=== PATIENT | female | born 2000 | race Caucasian/White ===

== ENCOUNTER → 2020-06-10 14:06 | Outpatient (BNVA) | payer OTHER, SELFPAY | PROVIDERS: Family Provider Family Medicine; PCP Family Medicine; Referring Provider Dermatology; Visit Provider Dermatology | DX: L70.8 Other acne (principal); L21.9 Seborrheic dermatitis, unspecified | CPT/HCPCS: 99203 ==

== ENCOUNTER → 2020-11-09 15:35 | Outpatient (BNVA) | payer OTHER, SELFPAY | PROVIDERS: Family Provider Family Medicine; PCP Family Medicine; Visit Provider Nurse Practitioner | DX: R39.9 Unspecified symptoms and signs involving the genitourinary system (principal); N39.0 Urinary tract infection, site not specified | CPT/HCPCS: 81000 ==

== ENCOUNTER → 2021-05-14 13:55 | Outpatient (BNVA) | payer OTHER, SELFPAY | PROVIDERS: PCP Family Medicine; Visit Provider Nurse Practitioner Family | DX: E66.9 Obesity, unspecified (principal); R53.83 Other fatigue; E03.9 Hypothyroidism, unspecified | CPT/HCPCS: 80053; 82607; 83036; 83550; 84443; 84702 ==

== ENCOUNTER → 2021-12-23 14:25 | Outpatient (BNVA) | payer OTHER, SELFPAY | PROVIDERS: PCP Family Medicine; Referring Provider Nurse Practitioner Family; Visit Provider Podiatrist Foot & Ankle Surgery | DX: M79.671 Pain in right foot (principal); M79.672 Pain in left foot | CPT/HCPCS: 73630 ==

== ENCOUNTER → 2022-02-17 14:00 | Outpatient (BNVA) | payer OTHER, SELFPAY | PROVIDERS: PCP Family Medicine; Visit Provider Nurse Practitioner Family | DX: E03.9 Hypothyroidism, unspecified (principal); E66.9 Obesity, unspecified; N92.6 Irregular menstruation, unspecified | CPT/HCPCS: 84443 ==

== ENCOUNTER 2022-04-01 05:42 | Outpatient (CLI) | payer OTHER, SELFPAY ==
--- NOTE | 2022-04-01 06:15 | US_ITS ---
WS: [id number] TRANSVAGINAL PELVIC ULTRASOUND HISTORY: Irregular cycles. COMPARISON: None available. Uterus: 7.6 cm x 5.1 cm x 3.3 cm. Low normal size uterus with the fundus directed posterior. Position makes the uterus difficult to visualize but no fibroid or mass identified. Endometrium: 1.1 cm. No abnormality. Right ovary: 2.5 cm x 3.4 cm x 1.9 cm. Normal size and vascularity, no cystic or solid masses. Left ovary: Not visualized. Large amount of shadowing from the LEFT adnexa. No free fluid. US/US transvaginal [id number] IMPRESSION: 1. Normal endometrium. 2. Normal uterus. 3. LEFT ovary not visualized.
== END 2022-04-01 05:43 | disposition home or self-care (01) ==
LOC: RAD 05:45
PROVIDERS: PCP Family Medicine; Visit Provider Nurse Practitioner Family
DX: N92.6 Irregular menstruation, unspecified (principal); E66.9 Obesity, unspecified; E03.9 Hypothyroidism, unspecified
CPT/HCPCS: 76830

== ENCOUNTER 2022-08-03 17:19 | Outpatient (CLI) | payer OTHER, SELFPAY | END 2022-08-03 17:20 | disposition home or self-care (01) | LOC: LAB 17:24 | PROVIDERS: Visit Provider Nurse Practitioner Women's Health | DX: N92.6 Irregular menstruation, unspecified (principal) | CPT/HCPCS: 84702 ==

== ENCOUNTER 2022-08-05 14:35 | Outpatient (CLI) | payer OTHER, SELFPAY | END 2022-08-05 14:36 | disposition home or self-care (01) | LOC: LAB 14:39 | PROVIDERS: Visit Provider Nurse Practitioner Women's Health | DX: N92.6 Irregular menstruation, unspecified (principal) | CPT/HCPCS: 36415; 84702 ==

== ENCOUNTER → 2022-08-26 12:10 | Outpatient (BNVA) | payer OTHER, SELFPAY | PROVIDERS: Visit Provider Nurse Practitioner Women's Health | DX: Z36.87 Encounter for antenatal screening for uncertain dates (principal) | CPT/HCPCS: 76817 ==

== ENCOUNTER → 2022-09-13 12:47 | Outpatient (BNVA) | payer OTHER, SELFPAY | PROVIDERS: PCP Family Medicine; Visit Provider Family Medicine | DX: E03.9 Hypothyroidism, unspecified; Z34.00 Encounter for supervision of normal first pregnancy, unspecified trimester; R03.0 Elevated blood-pressure reading, without diagnosis of hypertension | CPT/HCPCS: 80307; 81000; 81025; 82570; 84156; 84439; 84443; 84481; 85025; 86592; 86762; 86803; 86850; 86900; 87086; 87340; 87491; 87591; 87624; 87806 ==

== ENCOUNTER 2022-09-21 17:40 | Outpatient (CLI) | payer OTHER, SELFPAY ==
[2022-09-21 18:24] LABS: Basophils % 0.4 %; Eosinophils # 0.1 10^3/uL (0.0-0.8); Eosinophils % 1.2 %; Hematocrit 37.6 % (37.0-47.0); Hemoglobin 12.7 g/dL (11.5-15.3); Lymphocytes # 2.5 10^3/uL (0.8-4.8); Lymphocytes % 23.7 %; Mean Corpuscular HGB Conc 33.8 g/dL (30.0-36.0); Mean Corpuscular Hemoglobin 29.3 pg (28.0-34.0); Mean Corpuscular Volume 86.6 fl (81-99); Mean Platelet Volume 11.5 fL (7.4-10.4); Monocytes # 0.6 10^3/uL (0.2-0.9); Monocytes % 5.4 %; Neutrophils % 68.9 %; Nucleated Red Blood Cells % 0 %; Platelet Count 281 10^3/cmm (130-400); Red Blood Count 4.34 10^6/uL (4.1-5.3); Red Cell Distribution Width 13.2 % (12.1-15.1); White Blood Count 10.7 10^3/uL (4.0-10.0)
[2022-09-21 21:15] LABS: HIV 1 & 2 Antibody Non-Reactive (Non-Reactiv); HIV 1 & 2 Antigen Non-Reactive (Non-Reactiv)
[2022-09-21 22:02] LABS: Hepatitis B Surface Antigen Non-Reactive (Nonreactive); Hepatitis C Virus Antibody Non-Reactive (Nonreactive)
[2022-09-21 22:04] LABS: Free T4 Free Thyroxine 1.13 ng/dL (0.82-1.77); Rubella IgG 100.6 IU/mL (0.0-10.0); T3 Free 2.9 PG/ML (2.0-4.4); Thyroid Stimulating Hormone 2.18 uIU/mL (0.27-4.20)
[2022-09-21 22:07] LABS: Rapid Plasma Reagin Syphilis Nonreactive (Nonreactive)
== END 2022-09-21 17:41 | disposition home or self-care (01) ==
LOC: LAB 17:43
PROVIDERS: PCP Family Medicine; Visit Provider Family Medicine
DX: Z36.9 Encounter for antenatal screening, unspecified (principal)
CPT/HCPCS: 36415; 84439; 84443; 84481; 85025; 86592; 86762; 86803; 86850; 86900; 87340; 87806

== ENCOUNTER 2022-10-19 16:50 | Outpatient (CLI) | payer OTHER, SELFPAY ==
[2022-10-19 22:50] LABS: Free T4 Free Thyroxine 0.99 ng/dL (0.82-1.77); Thyroid Stimulating Hormone 1.89 uIU/mL (0.27-4.20)
[2022-10-22 16:45] LABS: Alpha-fetoprotein MoM 1.01; Calculated Gestional Age 15.6 weeks; Cigarette Smoker NO; Donor Age Egg Retrival NOT GIVEN; Estriol Free 0.63 ng/mL; Inhibin A Dimeric 229 pg/mL; Insulin Depend Dibetic NOT GIVEN; Maternal Serum HCG 55.17 IU/mL; Maternal Serum HCG MoM 1.74; Maternal Weight 208 lbs; Mothers Ethnic Orgin CAUCASIAN; Number of Fetuses 1; Pregnancy Result of IVF NO; Previous Pregnancy Down Synd. NOT GIVEN; Quad Risk for ONTD <1 IN 5000
== END 2022-10-19 16:51 | disposition home or self-care (01) ==
PROVIDERS: PCP Family Medicine; Visit Provider Family Medicine
DX: Z00.00 Encounter for general adult medical examination without abnormal findings (principal); E03.9 Hypothyroidism, unspecified
CPT/HCPCS: 81511; 84439; 84443

== ENCOUNTER 2022-11-24 15:10 | Outpatient (CLI) | payer OTHER, SELFPAY ==
--- NOTE | 2022-11-24 15:15 | US_ITS ---
WS: [id number] OBSTETRICAL ULTRASOUND COMPLETE HISTORY: Anatomy US COMPARISON: 08/26/2022 Single intrauterine gestation in Cephalic presentation. Cervix is Closed and normal length. Cervical length is 4.3 cm. Normal amount of amniotic fluid surrounds the fetus. Placenta: Anterior, no previa or abruption. Placenta grade 0 Heart: 147 BPM. Very limited visualization of the heart and outflow tracts due to body habitus. Anatomy: Intracranial structures and spine are normal. kidneys, stomach and urinary bladd er are unremarkable. Abdominal wall, three-vessel cord and cord insertion site are normal. 4 extremities are present. profile: Very limited. Gender: Female. measurements: BPD = 4.8 cm = 20w4d; HC = 18.2 cm = 20w4d; AC = 16.1 cm = 21w1d; FL = 3.4 cm = 20w5d; EFW: 385 g. Not available. Biometry is internally concordant. AGA by ultrasound: 20w6d ANANT by ultrasound: 04/07/2023 US/US OB >= 14 weeks fetus [id number] IMPRESSION: 1. Single intrauterine gestation of 20w6d with an ANANT of 04/07/2023. 2. Screening survey is limited overall due to maternal body habitus. No abnorm alities are identified. In particular evaluation of the heart and outflow tract s is suboptimal. Suboptimal profile.
== END 2022-11-24 15:11 | disposition home or self-care (01) ==
LOC: RAD 15:11
PROVIDERS: PCP Family Medicine; Visit Provider Family Medicine
DX: Z36.89 Encounter for other specified antenatal screening (principal); Z3A.20 20 weeks gestation of pregnancy
CPT/HCPCS: 76805

== ENCOUNTER → 2022-11-29 15:43 | Outpatient (BNVA) | payer OTHER, SELFPAY | PROVIDERS: PCP Family Medicine; Visit Provider Family Medicine | DX: E03.9 Hypothyroidism, unspecified (principal) | CPT/HCPCS: 84439; 84443 ==

== ENCOUNTER 2022-12-24 14:52 | Outpatient (CLI) | payer OTHER, SELFPAY ==
--- NOTE | 2022-12-24 15:15 | US_ITS ---
WS: [id number] ULTRASOUND OB LIMITED TECHNIQUE: Limited ultrasound examination of the fetus. CLINICAL INFORMATION: Follow up US in 3-4 weeks COMPARISON: November 24, 2022 FINDINGS: Cervix is long and closed measuring 4.8 cm. Single interuterine gestation. presentation is vertex Placental location is anterior. Placenta grade: 0. heart rate 150 BPM. Anatomy: Ultrasound examination of the outflow tracts and profile today. Four-chamber heart vie w and outflow tracts normal in appearance. Normal profile. US/US OB limited [id number] IMPRESSION: 1. Cervix is long and closed measuring 4.8 cm. 2. Outflow tracts and profile appear normal today. 3. Vertex presentation with anterior placenta.
== END 2022-12-24 14:53 | disposition home or self-care (01) ==
LOC: RAD 14:54
PROVIDERS: PCP Family Medicine; Visit Provider Family Medicine
DX: Z34.00 Encounter for supervision of normal first pregnancy, unspecified trimester (principal)
CPT/HCPCS: 76815

== ENCOUNTER → 2022-12-28 16:08 | Outpatient (BNVA) | payer OTHER, SELFPAY | PROVIDERS: PCP Family Medicine; Visit Provider Family Medicine | DX: Z34.00 Encounter for supervision of normal first pregnancy, unspecified trimester (principal) | CPT/HCPCS: 82950 ==

== ENCOUNTER → 2023-01-25 15:55 | Outpatient (BNVA) | payer OTHER, SELFPAY | PROVIDERS: PCP Family Medicine; Visit Provider Family Medicine | DX: R03.0 Elevated blood-pressure reading, without diagnosis of hypertension (principal); Z34.00 Encounter for supervision of normal first pregnancy, unspecified trimester; E03.9 Hypothyroidism, unspecified | CPT/HCPCS: 84439; 84443; 84481; 85025 ==

== ENCOUNTER → 2023-02-03 10:45 | Outpatient (BNVA) | payer OTHER, SELFPAY | PROVIDERS: PCP Family Medicine; Visit Provider Family Medicine | DX: R03.0 Elevated blood-pressure reading, without diagnosis of hypertension (principal); Z34.00 Encounter for supervision of normal first pregnancy, unspecified trimester; Z51.81 Encounter for therapeutic drug level monitoring; E03.9 Hypothyroidism, unspecified | CPT/HCPCS: 80053; 82570; 84156; 84550; 85025 ==

== ENCOUNTER → 2023-02-22 16:49 | Outpatient (BNVA) | payer OTHER, SELFPAY | PROVIDERS: PCP Family Medicine; Visit Provider Family Medicine | DX: R03.0 Elevated blood-pressure reading, without diagnosis of hypertension (principal); Z34.00 Encounter for supervision of normal first pregnancy, unspecified trimester | CPT/HCPCS: 82570; 84156 ==

== ENCOUNTER 2023-02-27 10:03 | Outpatient (CLI) | payer OTHER, SELFPAY ==
[2023-02-27] VITALS (9 sets, daily range): BP systolic 130–145; BP diastolic 62–97; PULSE 88–123; RESP 16; TEMP 35.8; BMI 43.0
[2023-02-27] MEDS: lactated ringers 1,000 ML 999 ML IV (11:04)
[2023-02-27] MEDS: ondansetron 2 mg/ML SDV 2 mL 4 MG IVP (11:05)
== END 2023-02-27 12:25 | disposition home or self-care (01) ==
LOC: OPOB 10:10 → OBGYN 10:11
PROVIDERS: PCP Family Medicine; Visit Provider Family Medicine
DX: O26.899 Other specified pregnancy related conditions, unspecified trimester (principal); R11.2 Nausea with vomiting, unspecified; Z3A.00 Weeks of gestation of pregnancy not specified; R19.7 Diarrhea, unspecified
CPT/HCPCS: 36415; 59025; 96374; 99211; J2405; J7120

== ENCOUNTER 2023-03-17 14:44 | Outpatient (CLI) | payer OTHER, SELFPAY ==
[2023-03-17] VITALS (7 sets, daily range): BP systolic 131–142; BP diastolic 81–94; PULSE 104–113; RESP 15
--- NOTE | 2023-03-17 14:54 | US_ITS ---
WS: [id number] ULTRASOUND OB LIMITED TECHNIQUE: Limited ultrasound examination of the fetus. CLINICAL INFORMATION: [facility] COMPARISON: December 24, 2022 FINDINGS: Cervix is long and closed measuring 4.3 cm Single interuterine gestation. Placental location is anterior. Placenta grade: 2 heart rate 133 BPM. Normal CHARLES 11.0 cm Largest single vertical pocket measures 4.5 cm Biophysical profile 8 out of 8. breathin movement: 2 tone: 2 Amniotic fluid: 2 US/US OB BPP wo NST [id number] IMPRESSION: Normal biophysical profile 8 out of 8
[2023-03-17 15:46] LABS: Basophils % 0.2 %; Eosinophils # 0.1 10^3/uL (0.0-0.8); Eosinophils % 0.4 %; Hemoglobin 12.5 g/dL (11.5-15.3); Lymphocytes # 1.8 10^3/uL (0.8-4.8); Lymphocytes % 14.5 %; Mean Corpuscular HGB Conc 32.9 g/dL (30.0-36.0); Mean Corpuscular Hemoglobin 29.3 pg (28.0-34.0); Mean Corpuscular Volume 89.2 fl (81-99); Mean Platelet Volume 12.5 fL (7.4-10.4); Monocytes # 0.5 10^3/uL (0.2-0.9); Monocytes % 3.9 %; Neutrophils % 80.3 %; Nucleated Red Blood Cells % 0 %; Platelet Count 204 10^3/cmm (130-400); Red Blood Count 4.26 10^6/uL (4.1-5.3); Red Cell Distribution Width 14.6 % (12.1-15.1); White Blood Count 12.6 10^3/uL (4.0-10.0)
[2023-03-17 15:59] LABS: Add Urine Microscopic? YES; Bilirubin Urine Neg (Negative); Blood Urine Neg (Negative); Glucose Urine UA Norm (Normal); Ketones Urine 1+ (Negative); Leukocyte Esterase Urine Negative (Negative); Nitrate Urine Negative (Negative); Protein Urine Neg (Negative); Specific Gravity, Urine 1.025 (1.005-1.030); Urine Appearance SL Hazy (CLEAR); Urine Color Yellow (Yellow); Urobilinogen Urine Norm (Negative); pH Urine 6 (5-7)
[2023-03-17 16:02] LABS: Urine Creatinine 110 mg/dL (28-217); Urine Protein Random 15 mg/dL
[2023-03-17 16:10] LABS: UPRO/UCREAT Ratio 0.14 mg/mg CR
[2023-03-17 16:13] LABS: Alanine Aminotransferase 10 U/L (0-33); Albumin Level 3.5 g/dL (3.5-5.2); Alkaline Phosphatase 388 U/L (35-105); Anion Gap 17.7 (5-19); Aspartate Amino Transferase 12 U/L (0-32); Blood Urea Nitrogen 4 mg/dL (6-20); Calcium 9.9 mg/dL (8.5-10.5); Carbon Dioxide 20 mmol/L (22-29); Chloride 101 mmol/L (98-107); Free T4 Free Thyroxine 0.89 ng/dL (0.82-1.77); Globulin 3.6 g/dL (1.3-4.6); Glomerular Filtration Rate 152.9 mL/min (90-130); Glucose 87 mg/dL (65-115); Osmolality Calculated 276 mOsm/kg (285-295); Potassium 3.7 mmol/L (3.5-5.1); Sodium 135 mmol/L (136-145); Thyroid Stimulating Hormone 1.82 uIU/mL (0.27-4.20); Total Bilirubin 0.3 mg/dL (0.15-1.2); Total Protein 7.1 g/dL (6.6-8.7); Uric Acid 5.7 mg/dL (2.4-5.7)
[2023-03-17 16:20] LABS: Bacteria Urine 1+ /hpf; Mucus Urine 2+ /hpf; RBC Urine 0-4 /hpf (0-2); Squamous Epithelial Cell Urine 0-4 /hpf (0-5)
[2023-03-17 16:21] LABS: Add Urine Culture? No
== END 2023-03-17 16:51 | disposition home or self-care (01) ==
LOC: OPOB 14:54 → OBGYN 14:55
PROVIDERS: PCP Family Medicine; Visit Provider Family Medicine
DX: Z36.9 Encounter for antenatal screening, unspecified (principal)
CPT/HCPCS: 36415; 59025; 76819; 80053; 81001; 82570; 84156; 84439; 84443; 84550; 85025; 87081; 99211

== ENCOUNTER 2023-03-18 15:32 | Outpatient (CLI) | payer OTHER, SELFPAY ==
[2023-03-18 17:13] LABS: Total Volume, Urine 2400 mL
[2023-03-20 11:26] LABS: Urine Total Protein 5.5 mg/dL (0-150)
== END 2023-03-18 15:33 | disposition home or self-care (01) ==
LOC: LAB 15:36
PROVIDERS: PCP Family Medicine; Visit Provider Family Medicine
DX: O13.9 Gestational [pregnancy-induced] hypertension without significant proteinuria, unspecified trimester (principal); Z3A.00 Weeks of gestation of pregnancy not specified
CPT/HCPCS: 84156

== ENCOUNTER 2023-03-21 07:06 | Outpatient (CLI) | payer OTHER, SELFPAY ==
[2023-03-21 07:10] VITALS: BMI 44.0
[2023-03-21 07:16] VITALS: BP 140/91; PULSE 78; TEMP 35.6
[2023-03-21 07:26] VITALS: RESP 17
[2023-03-21 07:36] VITALS: BP 134/89; PULSE 77
[2023-03-21 07:56] VITALS: BP 128/83; PULSE 84
[2023-03-21 08:08] VITALS: BP 128/83; PULSE 84
== END 2023-03-21 08:08 | disposition home or self-care (01) ==
LOC: OPOB 07:12 → OBGYN 07:13
PROVIDERS: PCP Family Medicine; Visit Provider Family Medicine
DX: O16.9 Unspecified maternal hypertension, unspecified trimester (principal); Z3A.00 Weeks of gestation of pregnancy not specified
CPT/HCPCS: 59025; 99211

== ENCOUNTER 2023-03-23 06:01 | Outpatient (CLI) | payer OTHER, SELFPAY ==
[2023-03-23] VITALS (18 sets, daily range): BP systolic 123–165; BP diastolic 77–101; PULSE 81–96; RESP 16; BMI 43.7
--- NOTE | 2023-03-23 06:33 | US_ITS ---
WS: [id number] BIOPHYSICAL PROFILE AMNIOTIC FLUID HISTORY: decreased movement COMPARISON: 03/17/2023, 12/24/2022 position: Vertex. Cardiac activity: 144 bpm. Cervix: Obscured by the head and late gestational age. Placenta: Anterior, no previa or abruption. Placenta grade: 2 Parameters are as follows: Breathin Movement: 2 Tone: 2 Fluid volume: 2 Amniotic Fluid Index: 7.7 cm UMBILICAL ARTERY DOPPLER Waveform analysis: Normal systolic and diastolic velocities. Diastolic velocity remains above the bas shane. Normal upstroke of waveform. SD ratios: SD ratios range from 1.8-2.4 Resistivity indices: 0.5 US/US OB lm w fetalBPP woNST &umb IMPRESSION: 1. Biophysical profile score: 8/8. 2. Grade 2 placenta. 3. Normal amniotic fluid. 4. Umbilical artery Doppler ranges between the 10th and 50th percentile. Doppl er in the mid umbilical artery just above the 25th percentile.
[2023-03-23] MEDS: labetalol 200 mg Tablet 50 MG PO (08:41)
[2023-03-23 08:49] LABS: Basophils % 0.2 %; Eosinophils # 0.1 10^3/uL (0.0-0.8); Eosinophils % 0.8 %; Hematocrit 37.4 % (37.0-47.0); Hemoglobin 12.2 g/dL (11.5-15.3); Lymphocytes # 1.6 10^3/uL (0.8-4.8); Lymphocytes % 16.4 %; Mean Corpuscular HGB Conc 32.6 g/dL (30.0-36.0); Mean Corpuscular Hemoglobin 28.9 pg (28.0-34.0); Mean Corpuscular Volume 88.6 fl (81-99); Mean Platelet Volume 12.3 fL (7.4-10.4); Monocytes # 0.5 10^3/uL (0.2-0.9); Monocytes % 5.1 %; Neutrophils # 7.52 10^3/uL (1.8-7.7); Neutrophils % 76.9 %; Nucleated Red Blood Cells % 0 %; Platelet Count 183 10^3/cmm (130-400); Red Blood Count 4.22 10^6/uL (4.1-5.3); Red Cell Distribution Width 14.6 % (12.1-15.1); White Blood Count 9.8 10^3/uL (4.0-10.0)
[2023-03-23 09:06] LABS: Alanine Aminotransferase 10 U/L (0-33); Albumin Level 3.2 g/dL (3.5-5.2); Alkaline Phosphatase 376 U/L (35-105); Anion Gap 17.5 (5-19); Aspartate Amino Transferase 11 U/L (0-32); Blood Urea Nitrogen 2 mg/dL (6-20); Calcium 9.2 mg/dL (8.5-10.5); Carbon Dioxide 19 mmol/L (22-29); Chloride 103 mmol/L (98-107); Globulin 3.1 g/dL (1.3-4.6); Glomerular Filtration Rate 197.8 mL/min (90-130); Glucose 78 mg/dL (65-115); Osmolality Calculated 277 mOsm/kg (285-295); Potassium 3.5 mmol/L (3.5-5.1); Sodium 136 mmol/L (136-145); Total Bilirubin 0.2 mg/dL (0.15-1.2); Total Protein 6.3 g/dL (6.6-8.7); Uric Acid 6.6 mg/dL (2.4-5.7)
[2023-03-23 09:17] LABS: Urine Creatinine 30 mg/dL (28-217); Urine Protein Random 4 mg/dL
[2023-03-23 09:29] LABS: UPRO/UCREAT Ratio 0.13 mg/mg CR
== END 2023-03-23 10:00 | disposition home or self-care (01) ==
LOC: OPOB 06:02 → OBGYN 06:04
PROVIDERS: PCP Family Medicine; Visit Provider Family Medicine
DX: O16.9 Unspecified maternal hypertension, unspecified trimester (principal); O36.8190 Decreased fetal movements, unspecified trimester, not applicable or unspecified; Z3A.00 Weeks of gestation of pregnancy not specified
CPT/HCPCS: 36415; 59025; 76815; 76819; 76820; 80053; 82570; 84156; 84550; 85025; 99211

== ENCOUNTER 2023-03-24 03:53 | Inpatient (IN) | payer OTHER, SELFPAY ==
[2023-03-24] VITALS (53 sets, daily range): BP systolic 119–174; BP diastolic 66–105; PULSE 53–106; RESP 16; BMI 43.7
[2023-03-24] MEDS: acetaminophen 325 mg Tablet 650 MG PO (03:25)
[2023-03-24 04:34] LABS: Basophils % 0.3 %; Eosinophils # 0.1 10^3/uL (0.0-0.8); Eosinophils % 0.9 %; Hematocrit 39.1 % (37.0-47.0); Hemoglobin 12.7 g/dL (11.5-15.3); Lymphocytes # 2.3 10^3/uL (0.8-4.8); Lymphocytes % 18.7 %; Mean Corpuscular HGB Conc 32.5 g/dL (30.0-36.0); Mean Corpuscular Hemoglobin 28.5 pg (28.0-34.0); Mean Corpuscular Volume 87.9 fl (81-99); Mean Platelet Volume 12.5 fL (7.4-10.4); Monocytes # 0.7 10^3/uL (0.2-0.9); Monocytes % 5.6 %; Nucleated Red Blood Cells % 0 %; Platelet Count 201 10^3/cmm (130-400); Red Blood Count 4.45 10^6/uL (4.1-5.3); Red Cell Distribution Width 14.6 % (12.1-15.1); White Blood Count 12.2 10^3/uL (4.0-10.0)
[2023-03-24] MEDS: dextrose 5%-lactated ringers 1,000 ML 125 ML IV (05:08)
[2023-03-24] MEDS: ampicillin 2,000 MG in sodium chloride 0.9% (plus) 50 ML 100 MG IV (05:09)
[2023-03-24] MEDS: miSOPROStol 100 mcg tablet 25 MCG VAGINAL ×3 (05:09→15:42)
--- NOTE | 2023-03-24 07:04 | P.HP_ITS ---
Providers/Chief Complaint Admitting Physician: Obinna Tracy MD Primary Care Provider: Obinna Tracy MD Chief Complaint: high bp History of Present Illness Sara Peña is a 22 year old @ 37.6 weeks by LMP c/w 7 wk US. Preg c/b gHTN, hypothyroidism, obesity, GBS positive. The patient presented to labor and delivery triage on the morning of 03/24/2023 secondary to elevated blood pressure. Around 2:00 in the morning she woke up with a headache and nausea and her blood pressure was 166/125. She took labetalol 50 mg but presented to labor delivery triage for further evaluation. The patient's blood pressure continued to be elevated in triage and because of this it was felt best to keep her for induction of labor. The patient's headache has improved with Tylenol. Her nausea is improved as her blood pressure has decreased. She currently denies seeing spots, chest pains and shortness of breath. She denies any vaginal bleeding, leakage of fluid, dy suria, nausea, vomiting, diarrhea constipation at this time. Medications/Allergies Home Medications Medication Instructions Recorded Confirmed Last Taken Type levothyroxine 50 mcg tablet 50 mcg PO DAILY #30 tabs 05/15/21 03/23/23 02/27/23 Rx prenat.vits,fredy,fpp-obmp-[id number] 1 tab PO DAILY 08/26/22 03/23/23 03/22/23 History labetalol 100 mg tablet 50 mg PO BID #30 tabs 03/23/23 Unknown Rx Allergies Allergy/AdvReac Type Severity Reaction Status Date / Time No Known Allergies Allergy Verified 02/27/23 10:49 PFSH Acute PFSH: Medical History Hypothyroid No pertinent past medical history neghx: htn,dm,dvt/pe PCP: Nisha Ravi Surgical History No history of previous surgery Family History Father Hypertension Grandmother Breast cancer Maternal--dx age unknown Mother Colon cancer dx age 42 Thyroid disease Denies family history of Ovarian cancer Diabetes Heart disease Hypercholesteremia Uterine cancer Stroke Social History Smoking and tobacco status: never smoked Alcohol intake: never Substance/Drug Use: never Current occupation: Works at [employer] Female Reproductive History: : 1 Vitals/I&O/Wt Last Vital Signs Pulse 86 03/24/23 06:11 Resp 16 03/24/23 04:28 BP 134/91 03/24/23 06:11 O2 Del Method Room Air 03/24/23 04:30 Weight last 48 hrs Weight 239 lb Physical Exam Narrative: General: Alert and oriented x3 Eyes: Pupils equal round and reactive to light and accommodation Mouth: Mucous membranes moist, pharynx non-erythematous Cardiac: Regular rate and rhythm without murmurs Lungs: Clear to auscultation bilaterally without wheezes, crackles or rhonchi Abdomen: Soft, non-tender, fundus consistent with gestational age Extremities: Trace edema in the bilateral lower extremities, normal deep tendon reflexes in the bilateral lower extremities. Data 03/24/23 04:19 A&P Assessment and plan (1) Supervision of high risk , unspecified, third trimester: Due to the patient's blood pressures being severely elevated, she has been admitted for induction of labor. She received 1 dose of Cytotec. We will plan to continue with Cytotec and transition to Pitocin when able. The patient is unsure of an epidural at this time. We will start GBS prophylaxis when she is starting to make change. The antihypertensive protocol has been started. So far she has not needed IV medications. All questions were answered. We will proceed with induction. (2) Gestational HTN: Attestations Medical Necessity Statement*: The patient will be here for greater than 2 midnights due to routine intrapartum and management of labor and delivery. Coding Level of Care Code Acute Code for Chg Fwd Diagnoses Supervision of high risk , unspecified, third trimester O09.93 Gestational HTN O13.9
[2023-03-24] MEDS: ampicillin 1,000 MG in sodium chloride 0.9% (plus) 50 ML 100 MG IV ×4 (09:32→22:27)
[2023-03-25] VITALS (72 sets, daily range): BP systolic 106–173; BP diastolic 61–105; PULSE 68–108; RESP 16; TEMP 36–36.9
[2023-03-25] MEDS: ampicillin 1,000 MG in sodium chloride 0.9% (plus) 50 ML 100 MG IV ×6 (02:28→22:52)
[2023-03-25] MEDS: butorphanol 2 mg/mL SDV 1 mL 1 MG IVP ×3 (03:56→21:25)
[2023-03-25] MEDS: dextrose 5%-lactated ringers 1,000 ML 125 ML IV ×2 (06:16→20:55)
[2023-03-25] MEDS: hyDROXYzine 25 mg Capsule 50 MG PO (12:28)
[2023-03-26] VITALS (71 sets, daily range): BP systolic 107–171; BP diastolic 65–110; PULSE 60–130; RESP 16–18; TEMP 36.6–36.9; O2SAT 99–100
[2023-03-26] MEDS: butorphanol 2 mg/mL SDV 1 mL 1 MG IVP
[2023-03-26] MEDS: lactated ringers 1,000 ML 999 ML IV (01:45)
--- NOTE | 2023-03-26 03:22 | ANES.PREANE2 ---
Pre-Anesthetic Assessment Height/Weight: Height 1.57 m Weight 108.409 kg Temp Pulse Resp BP Pulse Ox O2 Del Method 98.4 F 89 16 132/79 99 Room Air 03/25/23 15:50 03/26/23 03:20 03/25/23 04:28 03/26/23 03:20 03/26/23 03:20 03/24/23 04:30 Preop Diagnosis: Intrauterine Labor Epidural Familial anesthetic complications: None Was Beta Terrance taken within 24 hours: N/A Was Clonidine taken within 24 hours: N/A Social No alcohol and No tobacco Exam alert, oriented x 3, clear to auscultation bilaterally and regular rate & rhythm Airway Submandibular: within normal limits Mallampati: Class II Dentition: full History/ROS No significant history except as noted Pulmonary None reported CV/HEM gestational Htn None reported Hepatic None reported GI None reported Metabolic Thyroid Disease [facility] [place] None reported Neuropsych None reported Anesthetic Plan ASA status: 2 Anesthesia: Anesthesia Evaluation and Regional (specify below) (epidural ) Risk of > 500 ml blood loss (7ml/kg in children): No Medications/Allergies Home Medications Medication Instructions Recorded Confirmed Last Taken Type levothyroxine 50 mcg tablet 50 mcg PO DAILY #30 tabs 05/15/21 03/23/23 02/27/23 Rx prenat.vits,fredy,gak-ijbu-upwjm 1 tab PO DAILY 08/26/22 03/23/23 03/22/23 History labetalol 100 mg tablet 50 mg PO BID #30 tabs 03/23/23 Unknown Rx Allergies Allergy/AdvReac Type Severity Reaction Status Date / Time No Known Allergies Allergy Verified 02/27/23 10:49 Current Medications Generic Name Dose Route Start Last Admin Trade Name Freq PRN Reason Stop Dose Admin Butorphanol Tartrate 1 mg 03/24/23 04:27 03/26/23 00:00 Butorphanol 2 Mg/Ml Sdv 1 Ml IVP 1 mg Q2H PRN Administration SEVERE PAIN Hydroxyzine Pamoate 50 mg 03/24/23 04:27 03/25/23 12:28 Hydroxyzine 25 Mg Capsule PO 50 mg QID PRN Administration sleep, agitation or itching Dextrose/Lactated Ringer's 1,000 mls @ 125 mls/hr 03/24/23 04:30 03/25/23 20:55 Dextrose 5%-Lactated Ringers IV 125 mls/hr .Q8H JENN Administration Ampicillin Sodium 1,000 mg/ 50 mls @ 100 mls/hr 03/24/23 08:45 03/25/23 22:52 Sodium Chloride IV 100 mls/hr Q4H JENN Administration Protocol Oxytocin 30 unit/ Sodium 503 mls @ 1 mls/hr 03/24/23 22:15 03/25/23 21:40 Chloride IV 20 mls/hr .Q24H JENN 20 mls/hr Titration Protocol Lactated Ringer's 1,000 mls @ 999 mls/hr 03/26/23 01:35 03/26/23 01:45 Lactated Ringers IV 999 mls/hr .Q1H1M PRN Administration See label comments PFSH Anesthesia Medical History Hypothyroid No pertinent past medical history neghx: htn,dm,dvt/pe PCP: Nisha Ravi Surgical History No history of previous surgery Family History Father Hypertension Grandmother Breast cancer Maternal--dx age unknown Mother Colon cancer dx age 42 Thyroid disease Denies family history of Ovarian cancer Diabetes Heart disease Hypercholesteremia Uterine cancer Stroke Social History Smoking and tobacco status: never smoked Alcohol intake: never Substance/Drug Use: never Current occupation: Works at [employer] Female Reproductive History : 1 Data Anesthesia 03/24/23 04:19 Short CBC 03/24/23 Range/Units 04:19 WBC 12.2 H (4.0-10.0) 10^3/uL Hgb 12.7 (11.5-15.3) g/dL Hct 39.1 (37.0-47.0) % MCV 87.9 (81-99) fl Plt Count 201 (130-400) 10^3/cmm Neut % (Auto) 74.0 % Neut # (Auto) 9.00 H (1.8-7.7) 10^3/uL Cardiac Studies: No Data to Display Anesthesia Procedures Epidural Time Out Performed: Yes Consents Signed: Procedure Consent Consent: requested by attending/covering physician, from patient, risks and benefits reviewed and patient agrees to proceed Lumbar Level: L4-L5 Epidural position: sitting Epidural procedure: sterile prep of area, 1% lidocaine to numb the area, 18 g needle, negative for paresthesia passed, neg for paresthesia, test dose given, 1.5% xylocaine 1:200k epi (3 ml), placed PCEA, no systemic response, sterile dressing applied, L.U.D. no apparent complications and 0.2% Ropiavacaine @ mls/hr (10) Additional Comments: ALFIE 7cm, cath easily threaded to 5cm in space; pt educated on epidural and RN CLINICIAN.
[2023-03-26] MEDS: ampicillin 1,000 MG in sodium chloride 0.9% (plus) 50 ML 100 MG IV ×2 (04:11→07:57)
--- NOTE | 2023-03-26 09:46 | P.PN_ITS ---
Subjective Subjective: Date of service: 03/25/2023 The patient is doing well today. She has been on IV Pitocin however is not making significant change. Her pain is currently well controlled. heart tones are in the mid 140s with moderate variability good accelerations with a category 1 tracing. Vitals/I&O/Wt Last Vital Signs Temp 98.1 F 03/26/23 04:13 Pulse 72 03/26/23 09:40 Resp 16 03/25/23 04:28 BP 140/81 03/26/23 09:40 Pulse Ox 100 03/26/23 03:50 O2 Del Method Room Air 03/24/23 04:30 03/25/23 03/26/23 03/26/23 22:59 06:59 14:59 Intake Total 262.5 / 1407.5 100 / 1507.5 228.667 / 228.667 Balance 262.5 / 1407.5 100 / 1507.5 228.667 / 228.667 Physical Exam Narrative: General: Alert and oriented x3 Cardiac: Regular rate and rhythm without murmurs Lungs: Clear to auscultation bilaterally without wheezes, crackles or rhonchi Abdomen: Soft, non-tender, fundus consistent with gestational age Extremities: Trace edema in the bilateral lower extremities, moderately brisk deep tendon reflexes in the bilateral lower extremities. Urinary Catheter Management: Mistry: Cath Placed During This Visit: yes Reason for Continuing Indwelling Catheter: Other Urinary Catheter Date of Insertion: 03/26/23 Urinary Catheter Time of Insertion: 03:52 Data 03/24/23 04:19 A&P Assessment and plan (1) Supervision of high risk , unspecified, third trimester: The patient's blood pressures are occasionally increasing into the severe range, however they are not staying there, so we have not needed to give IV treatment as of yet. If they are staying in the elevated range, we may need to consider I V magnesium. The patient is stable at this time. We will continue with IV Pitocin and intrapartum management of labor and delivery. Attestations Medical Necessity Statement*: The patient's care will continue to cross 2 midnights as we move through the process of intrapartum and and eventually management of labor and delivery. Coding Level of Care Code Acute Code for Chg Fwd Diagnoses Supervision of high risk , unspecified, third trimester O09.93
--- NOTE | 2023-03-26 11:24 | PM.DELIVERY ---
Delivery Note: Date of delivery: March 26, 2023 Pre-delivery diagnoses: 1. Intrauterine at 38.1 weeks gestation 2. Gestational hypertension with intermittent severe blood pressures 3. Hypothyroidism 4. Obesity 5. GBS positive Post-delivery diagnoses: 1. Intrauterine status post spontaneous vaginal delivery at 38.1 weeks gestation 2. Gestational hypertension with intermittent severe blood pressures 3. Hypothyroidism 4. Obesity 5. GBS positive status post adequate antibiotic treatment 6. Delivery of healthy female weighing 5 pounds 14 ounces with Apgars of 8 and 9 Procedure: Spontaneous vaginal delivery Delivering Physician: Obinna Tracy MD Estimated blood loss (mL): 200 Findings: 1. Healthy appearing placenta with central umbilical cord insertion site 2. Healthy female with Apgars of 8 and 9 weighing 5 pounds 14 ounces Pre-Delivery Course: Sara Peña is a 22 year old G1 NOW P1 status post spontaneous vaginal delivery@ 38.1 weeks by LMP c/w 7 wk US. Preg c/b gHTN, hypothyroidism, obesity, GBS positive. The patient presented to labor and delivery triage on the morning of 03/24/2023 secondary to elevated blood pressure.? Around 2:00 in the morning she woke up with a headache and nausea and her blood pressure was 166/125.? She took labetalol 50 mg but presented to labor delivery triage for further evaluation.? The patient's blood pressure continued to be elevated in triage and because of this it was felt best to keep her for induction of labor. The patient was given 3 doses of Cytotec and she made change up to a Camacho of 5. IV Pitocin was started and she had regular contractions, however she made slow change. By the afternoon of 03/25/2023, she was not making significant change and the head was not well applied. For this reason we stopped the Pitocin for a couple of hours and allowed her to eat and then restarted the IV Pitocin. The patient had regular contractions after this again and began to make change. She received a laboring epidural. SROM took place at 5:19 AM on the morning of 03/26/2023. The patient then made steady change and was complete by 8:54 AM on 03/26/2023. Delivery: The patient began pushing at 9:00 AM on 03/26/2023. The patient pushed well and the infant delivered in the OA position at 10:42 AM on 03/26/2023. The left shoulder was anterior shoulder and it delivered with ease. There was a nuchal cord and the infant was delivered through this. The 's mouth and nose were bulb suctioned by myself. The infant began crying shortly after delivery. The infant was placed on the mother's chest where the nurses were waiting to care for her. The cord was clamped by myself after approximately 1 minute and cut by the infant's father. Cord blood was obtained. The cord was then drained of blood and traction was placed on umbilical cord. Uterus was massaged and the placenta delivered without complication at 10:46 AM on 03/26/2023. The cervix was inspected and no lacerations were noted. The vaginal wall was inspected and the patient had a small first-degree right upper labial vaginal tear that did not need sutured. She also had a second-degree tear in the perineal region that was bleeding and required suturing. The patient's epidural provided adequate anesthesia. 3-0 Vicryl was used to repair the laceration in a running fashion. The patient tolerated this well. Hemostasis was achieved and a rectal exam was done and no sutures were noted in the rectal vault. Currently both the mother and infant are doing well. History History History 1 Term 1 0 Miscarriages/Ectopic 0 Living Children 1 Past Pregnancies Del. Date GA/Weeks Outcome Route Wt Inf Gender Labor Lgth Comp. Anesthesia Location 03/26/23 38 live - full term Vaginal 5 lb 14 oz Female 52 hrs [facility] Delivery Date: 03/26/23 Last Updated by: Obinna Tracy MD Induced for gestational hypertension A&P Assessment and plan (1) Spontaneous vaginal delivery: (2) Supervision of high risk , unspecified, third trimester: (3) Gestational HTN: Coding Level of Care Code Acute Code for Chg Fwd Diagnoses Spontaneous vaginal delivery O80 Supervision of high risk , unspecified, third trimester O09.93 Gestational HTN O13.9
[2023-03-26] MEDS: ibuprofen 800 mg tablet PO ×2 (14:18→21:09)
[2023-03-26] MEDS: docusate sodium 100 mg Capsule PO (17:45)
[2023-03-27 00:45] VITALS: BP 138/87; PULSE 90; RESP 15; TEMP 36.7; O2SAT 98
[2023-03-27 01:09] LABS: Hemoglobin 10.1 g/dL (11.5-15.3); Mean Corpuscular HGB Conc 32.6 g/dL (30.0-36.0); Mean Corpuscular Hemoglobin 28.9 pg (28.0-34.0); Mean Corpuscular Volume 88.8 fl (81-99); Mean Platelet Volume 12.4 fL (7.4-10.4); Platelet Count 184 10^3/cmm (130-400); Red Blood Count 3.49 10^6/uL (4.1-5.3); Red Cell Distribution Width 14.7 % (12.1-15.1); White Blood Count 16.1 10^3/uL (4.0-10.0)
[2023-03-27 04:11] VITALS: BP 146/93; PULSE 75; RESP 16; TEMP 36.8; O2SAT 98
[2023-03-27] MEDS: acetaminophen 325 mg Tablet 650 MG PO (05:38)
[2023-03-27] MEDS: docusate sodium 100 mg Capsule PO (09:29)
[2023-03-27] MEDS: ibuprofen 800 mg tablet PO (09:29)
[2023-03-27] MEDS: prenatal vitamin Capsule 1 CAP PO (09:29)
[2023-03-27 09:30] VITALS: BP 144/89; PULSE 86; RESP 16; TEMP 36.6
[2023-03-27 12:45] VITALS: BP 144/89; PULSE 86; RESP 16; TEMP 36.6
--- NOTE | 2023-03-28 08:35 | ANE.PACU2 ---
Inpatient post-anesthesia follow up: Airway intact: Yes Vital signs: Temperature 97.9 F Pulse Rate 86 Respiratory Rate 16 Blood Pressure 144/89 Pulse Oximetry 98 Oxygen Delivery Me thod Room Air Oxygen Flow Rate Fraction of Inspir ed Oxygen Hydration adequate: Yes Nausea and vomiting: No Pain level: 2 Mental status: Baseline
--- NOTE | 2023-04-15 13:50 | P.DS_ITS ---
Discharge Providers Date of Admission: 03/24/23 03:53 Date of Discharge: March 27, 2023 Attending Provider at Admission: Obinna Tracy MD Attending Provider at Discharge: Obinna Tracy MD Primary Care Provider: Obinna Tracy MD Diagnoses at Discharge Discharge Diagnosis (1) Spontaneous vaginal delivery: Status: Resolved (2) Supervision of high risk , unspecified, third trimester: Status: Resolved (3) Gestational HTN: Status: Acute Other Information Additional DC diagnoses/information: 1.? Intrauterine status post spontaneous vaginal delivery at 38.1 weeks gestation 2.? Gestational hypertension with intermittent severe blood pressures 3.? Hypothyroidism 4.? Obesity 5.? GBS positive status post adequate antibiotic treatment 6.? Delivery of healthy female weighing 5 pounds 14 ounces with Apgars of 8 and 9 ? Procedure: Spontaneous vaginal delivery ? Delivering Physician: Obinna Tracy MD ? Estimated blood loss (mL): 200? Findings: 1.? Healthy appearing placenta with cent ral umbilical cord insertion site 2.? Healthy female with Apgars of 8 and 9 weighing 5 pounds 14 ounces Pre-Delivery Course:?? Delivery:?? ? The left shoulder was anterior shoulder and it delivered with ease.? There was a nuchal cord and the infant was delivered through this.? The 's mouth and nose were bulb suctioned by myself.? The infant began crying shortly after delivery.? The was placed on the mother's chest where the nurses were waiting to care for her.? The cord was clamped by myself after approximately 1 minute and cut by the infant's father.? Cord blood was obtained.? The cord was then drained of blood and traction was placed on umbilical cord.? Uterus was massaged and the placenta delivered without complication at 10:46 AM on 03/26/2023.? The cervix was inspected and no lacerations were noted.? The vaginal wall was inspected and the patient had a small first-degree right upper labial vaginal tear that did not need sutured.? She also had a second-degree tear in the perineal region that was bleeding and required suturing.? The patient's epidural provided adequate anesthesia.? 3-0 Vicryl was used to repair the laceration in a running fashion.? The patient tolerated this well.? Hemostasis was achieved and a rectal exam was done and no sutures were noted in the rectal vault.? ? Currently both the mother and are doing well. Reason for Visit Reason for Visit: high bp Brief History: Sara Peña is a 22 year old G1 now P1 status post spontaneous vaginal delivery@ 38.1 weeks by LMP c/w 7 wk US. Preg c/b gHTN, hypothyroidism, obesity, GBS positive. The patient presented to labor and delivery triage on the morning of 03/24/2023 secondary to elevated blood pressure.? Around 2:00 in the morning she woke up with a headache and nausea and her blood pressure was 166/125.? She took labetalol 50 mg but presented to labor delivery triage for further evaluation.? The patient's blood pressure continued to be elevated in triage and because of this it was felt best to keep her for induction of labor. Hospital Course Hospital Course The patient was given 3 doses of Cytotec and she made change up to a Camacho of 5.? IV Pitocin was started and she had regular contractions, however she made slow change.? By the afternoon of 03/25/2023, she was not making significant change and the head was not well applied.? For this reason we stopped the Pitocin for a couple of hours and allowed her to eat and then restarted the IV Pitocin.? The patient had regular contractions after this again and began to make change.? She received a laboring epidural.? SROM took place at 5:19 AM on the morning of 03/26/2023.? The patient then made steady change and was complete by 8:54 AM on 03/26/2023. The patient began pushing at 9:00 AM on 03/26/2023.? The patient pushed well and the infant delivered in the OA position at 10:42 AM on 03/26/2023. the patient did well without any complications. She has been ambulating, voiding, passing gas and tolerating food by mouth. Routine discharge instructions were discussed. The patient is in agreement with current plan of care. All questions were answered. Physical Exam Narrative: General: Alert and oriented x3 Cardiac: Regular rate and rhythm without murmurs Lungs: Clear to auscultation bilaterally without wheezes, crackles or rhonchi Abdomen: Soft, non-tender, fundus consistent with gestational age Extremities: Trace edema in the bilateral lower extremities, moderately brisk deep tendon reflexes in the bilateral lower extremities. Urinary Catheter Management: Mistry: Cath Placed During This Visit: yes, but has since been removed by the nurse Reason for Continuing Indwelling Catheter: Other Urinary Catheter Date of Insertion: 03/26/23 Urinary Catheter Time of Insertion: 03:52 Date Urinary Catheter Removed: 03/26/23 Time Urinary Catheter Discontinued: 09:00 Discharge Data Studies Completed and Pending Laboratory Results WBC 16.1 10^3/uL (4.0-10.0) H 03/27/23 00:45 RBC 3.49 10^6/uL (4.1-5.3) L 03/27/23 00:45 Hgb 10.1 g/dL (11.5-15.3) L 03/27/23 00:45 Hct 31.0 % (37.0-47.0) L 03/27/23 00:45 MCV 88.8 fl (81-99) 03/27/23 00:45 MCH 28.9 pg (28.0-34.0) 03/27/23 00:45 MCHC 32.6 g/dL (30.0-36.0) 03/27/23 00:45 RDW 14.7 % (12.1-15.1) 03/27/23 00:45 Plt Count 184 10^3/cmm (130-400) 03/27/23 00:45 MPV 12.4 fL (7.4-10.4) H 03/27/23 00:45 Neut % (Auto) 74.0 % 03/24/23 04:19 Lymph % (Auto) 18.7 % 03/24/23 04:19 [place] % (Auto) 5.6 % 03/24/23 04:19 Eos % (Auto) 0.9 % 03/24/23 04:19 Baso % (Auto) 0.3 % 03/24/23 04:19 Neut # (Auto) 9.00 10^3/uL (1.8-7.7) H 03/24/23 04:19 Lymph # (Auto) 2.3 10^3/uL (0.8-4.8) 03/24/23 04:19 [place] # (Auto) 0.7 10^3/uL (0.2-0.9) 03/24/23 04:19 Eos # (Auto) 0.1 10^3/uL (0.0-0.8) 03/24/23 04:19 Baso # (Auto) 0.0 10^3/uL (0.0-0.1) 03/24/23 04:19 Nucleated RBC % (auto) 0 % 03/24/23 04:19 Nucleated RBCs # 0.0 /100WBC 03/24/23 04:19 Vitals Last Vital Signs Temp 97.9 F 03/27/23 12:45 Pulse 86 03/27/23 12:45 Resp 16 03/27/23 12:45 BP 144/89 03/27/23 12:45 Pulse Ox 98 03/27/23 04:11 O2 Del Method Room Air 03/27/23 09:30 Discharge Plan Discharge Patient Disposition: Home Condition: Good Prescriptions: New ibuprofen 800 mg Tablet 800 mg PO TID Qty: 60 0RF hydrocodone-acetaminophen 5-325 mg Tablet 1 tab PO Q6H PRN (Reason: Moderate To Severe Pain) Qty: 15 0RF Continued prenat.vits,fredy,[id number] Tablet 1 tab PO DAILY levothyroxine 50 mcg tablet 50 mcg PO DAILY Qty: 30 5RF labetalol 100 mg tablet 50 mg PO BID Qty: 30 3RF Discharge Orders: Discharge Order (Routine); Ordered 03/27/23 Ordered By: Obinna Tracy Referrals: Obinna Tracy MD [Primary Care Provider] - 4-7 days Discharge Diet: Regular Discharge Activity: Limit activity as instructed Patient Instructions: Depression (DC), Caring for Your Baby (DC), Bleeding (DC), Preeclampsia and Eclampsia After Delivery (GEN), Hemorrhage (DC), OB Discharge Report, OB Anesthesia Instructions, OB Food/Drug Interaction Guide, Opioid Safety, OB Home Care, OB Proud Parent Packet Activity Restrictions/Additional Instructions: Keep your activity levels decreased overall for the first week, then gradually increase. Check your blood pressures twice a day and write them down and bring them to your appointment. If your blood pressures are getting over 160/110, please call office for further instructions. Please take your labetalol 50 mg twice a day if blood pressures are staying in the 140s over 90s or above. Nothing per vagina for 6 weeks. Discharge Attestations Time Spent in Discharge Care*: greater than 30 min Quality Metrics Clinical Quality Measures [ No reported AMI, CVA or VTE this stay] Coding Level of Care Code Acute Code for Chg Fwd Diagnoses Spontaneous vaginal delivery O80 Supervision of high risk , unspecified, third trimester O09.93 Gestational HTN O13.9
== END 2023-03-27 12:52 | disposition home or self-care (01) | DRG 807 ==
LOC: OBGYN 03:55 → OPOB 03-29 08:09
PROVIDERS: Admitting Provider Family Medicine; PCP Family Medicine; Visit Provider Family Medicine
DX: O13.4 Gestational [pregnancy-induced] hypertension without significant proteinuria, complicating childbirth (principal); Z37.0 Single live birth; Z3A.37 37 weeks gestation of pregnancy; O99.284 Endocrine, nutritional and metabolic diseases complicating childbirth; E03.9 Hypothyroidism, unspecified; O99.824 Streptococcus B carrier state complicating childbirth; O70.1 Second degree perineal laceration during delivery; O70.0 First degree perineal laceration during delivery; O99.214 Obesity complicating childbirth; E66.9 Obesity, unspecified
CPT/HCPCS: 36415; 51702; 59025; 59409; 85025; 85027; 96374; 96376; 99211; J0290; J0595; J2795; J7040; J7120; J7121

== ENCOUNTER → 2023-05-30 15:56 | Outpatient (BNVA) | payer OTHER, SELFPAY | PROVIDERS: PCP Family Medicine; Visit Provider Family Medicine | DX: E03.9 Hypothyroidism, unspecified (principal) | CPT/HCPCS: 84439; 84443 ==